=== PATIENT | female | born 1950 | race Caucasian/White ===

== ENCOUNTER → 2016-07-01 | Outpatient (CLI) | payer OTHER ==
[~2016-07-01] MED LIST: IOPAMIDOL (ISOVUE-300) 100 ML BTL IV ONE
== END ==
LOC: CIMAGING 10:22
PROVIDERS: ATTEND Physician Assistant
DX: Z90.49 Acquired absence of other specified parts of digestive tract (principal); K59.00 Constipation, unspecified; I70.0 Atherosclerosis of aorta; N28.1 Cyst of kidney, acquired; N19 Unspecified kidney failure
CPT/HCPCS: 74160; Q9967; 82565-PO

== ENCOUNTER → 2016-11-19 | Outpatient (CLI) | payer OTHER | LOC: FIMAGING 07:58 | PROVIDERS: ATTEND Family Medicine | DX: Z12.31 Encounter for screening mammogram for malignant neoplasm of breast (principal) | CPT/HCPCS: G0202 ==

== ENCOUNTER → 2017-11-21 | Outpatient (CLI) | payer OTHER | LOC: FIMAGING 09:00 | PROVIDERS: ATTEND Family Medicine | DX: Z12.31 Encounter for screening mammogram for malignant neoplasm of breast (principal) ==